=== PATIENT | male | born 2000 | race Caucasian/White ===

== ENCOUNTER 2021-05-18 10:48 | Emergency (ER) | payer OTHER ==
[~2021-05-18] VITALS: Ht 172.7 cm; Wt 79.4 kg
[~2021-05-18 10:48] MED LIST: ADVIL200 MG PO; FLUOXETINE HCL20 MG PO; FLUOXETINE HCL40 MG PO; SINGULAIR10 MG PO; ZYRTEC10 MG PO
[2021-05-18] MEDS ORDERED: ONDANSETRON ODT4 MG PO (16:33)
== END 2021-05-18 16:51 | disposition home or self-care (01) ==
LOC: ED 10:48
DX: F41.9 Anxiety disorder, unspecified (principal); E86.0 Dehydration; R11.2 Nausea with vomiting, unspecified; Z20.822 Contact with and (suspected) exposure to COVID-19
CPT/HCPCS: 71045; 80053; 81001; 83690; 85025; 96374; 99285-25; C9803; J2060; J7030; U0003

== ENCOUNTER 2021-06-27 16:41 | Emergency (ER) | payer OTHER ==
[~2021-06-27] VITALS: Ht 172.7 cm; Wt 73.9 kg
[~2021-06-27 16:41] MED LIST changes: +ONDANSETRON ODT4 MG PO
== END 2021-06-27 21:23 | disposition home or self-care (01) ==
LOC: ED 16:41
DX: R10.9 Unspecified abdominal pain (principal)
CPT/HCPCS: 74177; 80053; 81001; 83690; 83735; 85025; 99284-25